=== PATIENT | male | born 1985 | race Two or more races ===

== ENCOUNTER 2025-02-25 10:42 | Emergency (ER) | payer MEDICAID, OTHER ==
[~2025-02-25] VITALS: Ht 167.6 cm; Wt 95.0 kg
[2025-02-25 11:18] VITALS: TEMP 98.4
[2025-02-25] MEDS ORDERED: BUPR1FIL7 SL (11:21)
[2025-02-25 11:35] VITALS: BP 130/80; PULSE 72; RESP 20; O2SAT 100
[2025-02-25] MEDS: BUPRENORPHINE HCL/NALOXONE HCL 2-0.5 MG SUBLINGUAL TABLET SL ONE (12:40)
[2025-02-25] MEDS: BUPRENORPHINE HCL/NALOXONE HCL 8-2 MG SUBLINGUAL TABLET SL ONE (12:40)
== END 2025-02-25 12:43 | disposition home or self-care (01) ==
LOC: EMS 10:42
DX: F11.23 Opioid dependence with withdrawal (principal); F41.9 Anxiety disorder, unspecified; F17.210 Nicotine dependence, cigarettes, uncomplicated; Z79.899 Other long term (current) drug therapy
CPT/HCPCS: 99283; J0571